=== PATIENT | female | born 1955 | race Caucasian/White ===

== ENCOUNTER 2017-01-03 08:33 | Day surgery (SDC) | payer BC ==
--- NOTE | ~2017-01-03 | EGD ---
EGD REPORT [facility] [address] [place] [place] [address] NAME: BEN CLAYTON : [birth year] STATUS : REG [facility]#: [id number] AGE: 61 ADM/REG DATE : 01/03/17 MR#: [id number] REPORT SERV DATE: 01/03/17 DICTATED BY: TREVOR RAUSCH DATE: 01/03/17 REPORT STATUS : Draft TRANSCRIBED BY: [employer] DATE: 01/03/17 [facility] Patient Name: Ben Clayton Date of : 1955 Attending MD: TREVOR RAUSCH MD Procedure Date No Time: 01/03/2017 Procedure: Upper GI endoscopy Indications: Chronic cough Medicines: Sedation Required Anesthesia Staff Assistance Complications: No immediate complications. Estimated blood loss: Minimal. Procedure: Pre-Anesthesia Assessment: - ASA Grade Assessment: II - A patient with mild systemic disease. After obtaining informed consent, the endoscope was passed under direct vision. Throughout the procedure, the patient's blood pressure, pulse, and oxygen saturations were monitored continuously. The GIF [id number] was introduced through the mouth, and advanced to the second part of duodenum. The upper GI endoscopy was accomplished without difficulty. The patient tolerated the procedure well. Findings: LA Grade A (one or more mucosal breaks less than 5 mm, not extending between tops of 2 mucosal folds) esophagitis with no bleeding was found in the lower third of the esophagus. Biopsies were taken with a cold forceps for histology. A few dispersed, small non-bleeding erosions were found in the gastric antrum. There were no stigmata of recent bleeding. Biopsies were taken with a cold forceps for histology. The examined duodenum was normal. The WALKER capsule with delivery system was introduced through the mouth and advanced into the esophagus, such that the WALKER pH capsule was positioned 34 cm from the incisors. The WALKER pH capsule was then deployed and attached to the esophageal mucosa. The delivery system was then withdrawn. Endoscopy was utilized for probe placement and diagnostic evaluation. Impression: - LA Grade A reflux esophagitis. Rule out Webster's esophagus. Biopsied. - Non-bleeding erosive gastropathy. Biopsied. - Normal examined duodenum. - The WALKER pH capsule was deployed. Recommendation: - Discharge patient to home. EGD REPORT [address] [address] NAME: BEN CLAYTON : [birth year] [place]US : [place] [facility] [place] [id number] AGE: 61 ADM/REG DATE : 01/03/17 MR#: [id number] REPORT SERV DATE: 01/03/17 DICTATED BY: TREVOR RAUSCH DATE: 01/03/17 REPORT STATUS : Draft TRANSCRIBED BY: [employer] DATE: 01/03/17 - Patient has a contact number available for emergencies. The signs and symptoms of potential delayed complications were discussed with the patient. Return to normal activities tomorrow. Written discharge instructions were provided to the patient. - Clear liquid diet today. - Continue present medications. - Await pathology results. Procedure Code(s): --- Professional --- 10252, Esophagogastroduodenoscopy, flexible, transoral; with biopsy, single or multiple Diagnosis Code(s): --- Professional --- K21.0, Gastro-esophageal reflux disease with esophagitis K31.9, Disease of stomach and duodenum, unspecified R05, Cough CPT copyright 2013 [employer] [place] [employer]. All rights reserved. The codes documented in this report are preliminary and upon interpretive naturalist review may be revised to meet current compliance requirements. TREVOR RAUSCH MD 01/03/2017 11:49 AM This report has been signed electronically. Number of Addenda: 0 Note Initiated On: 01/03/2017 11:20 AM Scope Withdrawal Time 0 hours 0 minutes 0 seconds [id number] [id number]
[~2017-01-03 08:33] MED LIST: ASAB PO; LOP25 PO; MAG OXIDE250 MG PO; VESICARE5 PO; VITC500 PO
== END 2017-01-03 23:59 | disposition home or self-care (01) ==
LOC: DMU 08:33
PROVIDERS: Internal Medicine Gastroenterology
PROC: 0DB58ZX Excision of Esophagus, Via Natural or Artificial Opening Endoscopic, Diagnostic (ICD-10-PCS; principal; 2017-01-03 10:30)
PROC: 0DB68ZX Excision of Stomach, Via Natural or Artificial Opening Endoscopic, Diagnostic (ICD-10-PCS; 2017-01-03 10:30)
DX: K21.0 Gastro-esophageal reflux disease with esophagitis (principal); K31.9 Disease of stomach and duodenum, unspecified; I48.0 Paroxysmal atrial fibrillation; G47.33 Obstructive sleep apnea (adult) (pediatric); E04.9 Nontoxic goiter, unspecified; I10 Essential (primary) hypertension; Z99.81 Dependence on supplemental oxygen
CPT/HCPCS: 88305; 91035